=== PATIENT | female | born 1960 | race Asian ===

== ENCOUNTER 2020-04-03 18:02 | Emergency (ER) | payer BC ==
[~2020-04-03] VITALS: Ht 152.4 cm; Wt 55.8 kg
[2020-04-03 18:20] VITALS: BP_SYST 137
[2020-04-03 19:48] VITALS: BP_SYST 137
[2020-04-03] MEDS: PHENAZOPYRIDINE HCL 100 MG TABLET PO ONE (19:59)
[2020-04-03] MEDS: cefTRIAXone 1 GM in LIDOCAINE 1%, 20 ML MDV 2.1 ML IM ONE (19:59)
== END 2020-04-03 19:50 | disposition home or self-care (01) ==
LOC: SED 18:02
DX: N30.80 Other cystitis without hematuria (principal)
CPT/HCPCS: 81002; 81025; 96372; 99283; J0696; J2001